=== PATIENT | female | born 1955 | race Caucasian/White ===

== ENCOUNTER 2022-09-27 11:00 | Outpatient (RCR) | payer MEDICARE, OTHER, SELFPAY | END 2022-11-08 12:48 | disposition home or self-care (01) | LOC: HO.PT 11:00 | PROVIDERS: PCP Physician Assistant; Visit Provider Internal Medicine Gastroenterology | DX: R15.2 Fecal urgency (principal) | CPT/HCPCS: 97110; 97112; 97140; 97162 ==